=== PATIENT | female | born 1990 | race American Indian/Alaskan Native ===

== ENCOUNTER 2019-01-29 15:30 | Emergency (ER) | payer SELFPAY ==
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
[2019-01-29 15:51] VITALS: BP 101/73
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
[2019-01-29 18:39] LABS: HCG Qualitative,Urine Negative (Negative)
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
== END 2019-01-29 23:00 | disposition home or self-care (01) ==
LOC: EEVIPCON 15:30 → ED 15:30
DX: S00.93XA Contusion of unspecified part of head, initial encounter (principal); M54.89 Other dorsalgia; Y04.8XXA Assault by other bodily force, initial encounter; Y93.89 Activity, other specified; Y92.29 Other specified public building as the place of occurrence of the external cause; Y99.8 Other external cause status
CPT/HCPCS: 70450; 71111; 81025; 99284